=== PATIENT | female | born 1945 | race Caucasian/White ===

== ENCOUNTER → 2017-08-08 | Day surgery (SDC) | payer MEDICARE ==
[2017-08-02 14:57] LABS: BASOPHILS % 0.4 % (0.0-1.0); EOSINOPHILS # (AUTO) 0.1 (0.0-0.4); EOSINOPHILS % 1.7 % (0.0-6.0); HEMATOCRIT 38.3 % (34.2-44.1); HEMOGLOBIN 12.7 g/dL (12.0-16.0); LYMPHOCYTES # (AUTO) 2.7 (1.0-3.2); LYMPHOCYTES % 35.9 % (18.0-39.1); MEAN CORPUSCULAR HEMOGLOBIN 29.4 pg (28-32); MEAN CORPUSCULAR HGB CONC 33.2 g/dL (31-35); MEAN CORPUSCULAR VOLUME 88.7 fL (81-99); MONOCYTES # (AUTO) 0.7 (0.2-0.8); MONOCYTES % 8.8 % (4.4-11.3); NEUTROPHILS % 52.8 % (38.7-80.0); PLATELET COUNT 172 x10e3/uL (140-360); RED BLOOD COUNT 4.32 x10e6/uL (3.6-5.1)
[~2017-08-08] MED LIST: AMLODIPINE BESY10 MG PO; ARMOUR THYROID60 MG PO; CO Q-10300 MG PO; EPHEDRINE SULFATE INJ 50 MG/10 ML SYR ONE; FENTANYL CITRATE/PF 100MCG/2 ML INJ ONE; FISH OIL 1,0001 EAC2 PO; FLAXSEED OIL1000 MG PO; HYOSCYAMINE SULFATE 0.5 MG/ML AMP ONE; IRON PO; LIDOCAINE HCL 2% LOCAL INJ 5 ML SDV VIAL INJ ONE; LOSARTAN POTAS100 MG PO; MIDAZOLAM HCL 2 MG/2 ML VIAL ONE; PROPOFOL IV EMULSION 10 MG/ML 50 ML VIAL ONE; VIT B SL; VIT D PO; VIT E PO
[2017-08-08 12:15] LABS: WBC,FECAL (FECAL LACTOFERRIN) POSITIVE (NEGATIVE)
[2017-08-08 12:16] LABS: C DIFFICILE TOXIN A&B AMP PROB NEGATIVE (NEGATIVE)
--- NOTE | 2017-08-08 14:35 | Operative Report ---
DATE OF PROCEDURE: August 08, 2017 REFERRING PHYSICIAN: Dr. Michael Mccauley. PROCEDURES PERFORMED 1. Esophagogastroduodenoscopy with esophageal dilatation and biopsies. 2. Colonoscopy with polypectomy. 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 INDICATIONS FOR COLONOSCOPY: Colorectal cancer screening. History of diarrhea. MEDICATION: Patient was done under MAC. Please see anesthesiologist's note. PROCEDURE: With the patient in the left lateral decubitus position, flexible fiberoptic Olympus gastroscope was introduced into the esophagus under direct visualization without any difficulty. There was some patchy erythema noted in distal esophagus. A mild stricture was noted at the GE junction that was dilated to size 52-[place]. The scope was then advanced with ease into the stomach and mucosa overlying the antrum revealed some diffuse erythema and moderate edema and biopsies were obtained and sent to stain for H. pylori. Mucosa overlying the body revealed some patchy nodularity and multiple biopsies were obtained. An approximately 1.8 cm sessile lesion was noted in the proximal body along the anterior wall just distal to the cardia and that was biopsied. Pylorus appeared to be of normal contour and shape. It was intubated with ease and the scope was advanced all the way to the 2nd portion of the duodenum. The scope was then withdrawn slowly. Mucosa overlying the proximal 2nd portion and the duodenal bulb appeared to be within normal limits. The scope was then withdrawn back into the stomach and retroflexed. Previously described sessile lesion was noted and the fundus appeared to be within normal limits as well as the cardia. The scope was then straightened out. It was subsequently withdrawn. Patient tolerated the procedure well. IMPRESSION 1. Distal esophagitis, mild. 2. Esophageal stricture, mild, gastroesophageal junction dilated to size 52-[place]. 3. Gastritis, antrum, biopsied. Biopsies sent to stain for Helicobacter pylori. 4. Approximately 1.8 cm sessile friable lesion proximal body anterior wall just below cardia, biopsied. 5. Patchy nodularity, body of stomach, biopsies obtained. PLAN: Follow up histology. Initiate Protonix 40 mg 1 p.o. q.a.m. a.c. Patient will need a CT of the abdomen and 5-H1AA level. Patient was then turned around. After adequate lubrication of the anal canal, a flexible fiberoptic Olympus colonoscope was inserted into the rectum with ease and advanced all the way to the cecum. The scope was then withdrawn slowly. Mucosa overlying the cecum appeared to be within normal limits. Two polyps were snared from the ascending colon. The transverse as well as the descending colon appeared to be within normal limits. An approximately 2.5 cm broad-based polypoid lesion was noted at approximately 40 cm from the anal verge and it was biopsied per wedge polypectomy snare and tissue was sent for frozen section. Three polyps were hot biopsied from the sigmoid colon. Approximately 1 cm polyp was snared from the rectosigmoid area and 1 polyp was hot biopsied from the rectum. The scope was then retroflexed into the distal rectum and small internal hemorrhoids were noted, none of which was actively bleeding. The scope was then straightened out. It was subsequently withdrawn. Patient tolerated the procedure well. IMPRESSION 1. Ascending colon polyps x3 snared. 2. Approximately 2.5 cm broad-based polypoid mass proximal sigmoid colon at approximately 40 cm from the anal verge. A wedge biopsy was obtained per snare electrocautery and sent for frozen section. 3. Sigmoid colon polyps x3, hot biopsied. 4. An approximately 1 cm polyp rectosigmoid area removed per snare electrocautery. 5. Rectal polyp, minute, hot biopsied. 6. Internal hemorrhoids, none actively bleeding. PLAN: Follow up histology. Patient will need a CT scan of the abdomen. General surgical consultation. A followup colonoscopy 1 year after surgery is in order. Job#: [id number] VAS cc:MD DR. MICHAEL LEW
[2017-08-09 16:31] LABS: CREATININE, SERUM 1.23 mg/dL (0.57-1.11)
== END | disposition home or self-care (01) ==
LOC: OR 06:14
PROVIDERS: ATTEND Internal Medicine Gastroenterology
DX: Z12.11 Encounter for screening for malignant neoplasm of colon (principal); D12.2 Benign neoplasm of ascending colon; D12.5 Benign neoplasm of sigmoid colon; D12.7 Benign neoplasm of rectosigmoid junction; K31.7 Polyp of stomach and duodenum; K29.70 Gastritis, unspecified, without bleeding; K22.2 Esophageal obstruction; K20.9 Esophagitis, unspecified; K31.89 Other diseases of stomach and duodenum; K64.8 Other hemorrhoids; I10 Essential (primary) hypertension; I34.1 Nonrheumatic mitral (valve) prolapse; R00.1 Bradycardia, unspecified; Z88.0 Allergy status to penicillin; Z01.810 Encounter for preprocedural cardiovascular examination; Z01.812 Encounter for preprocedural laboratory examination; Z85.020 Personal history of malignant carcinoid tumor of stomach
CPT/HCPCS: 36415 ×2; 43239; 43450; 45384; 45385; 82565; 83497; 83630; 83993; 84520; 85025; 87045; 87177; 87328; 87493; 88305; 88312; 88331; 93005; J1980; J2001; J2250; 45378; 45381

== ENCOUNTER → 2017-08-09 | Outpatient (CLI) | payer MEDICARE ==
[~2017-08-09] MED LIST changes: +DIATRIZOATE MEGL/DIATRIZOA SOD 30 ML BTL PO ONE; -EPHEDRINE SULFATE INJ 50 MG/10 ML SYR ONE; -FENTANYL CITRATE/PF 100MCG/2 ML INJ ONE; -HYOSCYAMINE SULFATE 0.5 MG/ML AMP ONE; +IOPAMIDOL 370 MG/ML 200 ML INFUS..BTL INJ ONE; -LIDOCAINE HCL 2% LOCAL INJ 5 ML SDV VIAL INJ ONE; -MIDAZOLAM HCL 2 MG/2 ML VIAL ONE; -PROPOFOL IV EMULSION 10 MG/ML 50 ML VIAL ONE; +SODIUM CHLORIDE 0.9% 200 ML ONE; +SODIUM CHLORIDE 0.9% 250ML 250 ML ONE; +SODIUM CHLORIDE 0.9% 50ML 50 ML ONE
--- NOTE | 2017-08-09 18:44 | Diagnostic Imaging Report ---
EXAM: CT Abdomen and Pelvis WITH contrast INDICATION: \S\COLON POLYPS - MASS COMPARISON: None. TECHNIQUE: Abdomen and pelvis were scanned utilizing a multidetector helical scanner from the lung base to the pubic symphysis after administration of IV contrast. Coronal and sagittal reformations were obtained. Routine protocol was performed. Scan was performed when during portal venous phase. IV CONTRAST: 100 mL of Isovue-370 ORAL CONTRAST: Gastroview COMPLICATIONS: None RADIATION DOSE: Total DLP: 352.3 mGy*cm Estimated effective dose: (DLP x 0.015 x size factor) mSv CTDIvol has been reviewed. It is below the limits set by the Radiation Protocol Committee (RPC). FINDINGS: LINES and TUBES: None. LOWER THORAX: Unremarkable HEPATOBILIARY: No hepatic mass. Multiple left hepatic lobe hypodensities (series 2, images 12 and 15) are too small to characterize. Minimal biliary dilatation, likely due to reservoir effects. GALLBLADDER: Cholecystectomy. SPLEEN: No splenomegaly. PANCREAS: No focal masses or ductal dilatation. ADRENALS: No adrenal nodules KIDNEYS/URETERS: Kidneys enhance symmetrically. No hydronephrosis. No cystic or solid mass lesions. No stones. GI TRACT: No abnormal distention or evidence of bowel obstruction. Focal mild colonic wall thickening in splenic flexure (series 2, image 25). Appendix is not visualized. PELVIC ORGANS/BLADDER: Unremarkable. LYMPH NODES: No lymphadenopathy. VESSELS: Unremarkable. PERITONEUM / RETROPERITONEUM: No free air or fluid. BONES: Unremarkable. SOFT TISSUES: Unremarkable. IMPRESSION: 1. No acute inflammatory process in the abdomen/pelvis. 2. No definite evidence of metastatic disease in the abdomen/pelvis. 3. Focal mild colonic wall thickening in the splenic flexure may be the site of colonic lesion. 4. Tiny left hepatic lobe hypodensities are too small to characterize. Recommend attention on follow-up examination. Signed by: Dr. Esteban Govea MD on 08/09/2017 6:41 PM
== END ==
LOC: CT 15:40
PROVIDERS: ATTEND Internal Medicine Gastroenterology
DX: K63.5 Polyp of colon (principal)
CPT/HCPCS: 74177; J7050 ×2; Q9967